=== PATIENT | female | born 1930 | race Caucasian/White ===

== ENCOUNTER 2018-08-03 22:19 | Emergency (ER) | payer MEDICARE, MEDICAID ==
[2018-08-03 22:55] LABS: #Basophils 0.1 thou/uL (0.0-0.2); #Eosinphils 0.3 thou/uL (0.0-0.7); #Lymphocytes 3.1 thou/uL (1.20-3.40); #Monocytes 1.1 thou/uL (0.11-0.59); #Neutrophils 5.2 thou/uL (1.40-6.50); %Basophils 1.2 % (0.0-1.0); %Eosinophils 2.9 % (0.0-10.0); %Lymphocytes 31.7 % (21.0-51.0); %Monocytes 11.2 % (0.0-10.0); Hemoglobin 12.9 g/dL (12.0-16.0); Mean Corpuscular HGB CONC 33.2 g/dL (32.0-36.0); Mean Corpuscular Hemoglobin 32.7 pg (27.0-31.0); Mean Corpuscular Volume 98.3 fL (78.0-98.0); Platelet Count 228 thou/uL (130-400); RBC Distribution Width 11.1 % (11.5-14.5); Red Blood Cell (RBC) Count 3.95 mill/uL (4.20-5.40); White Blood Cell (WBC) Count 9.8 thou/uL (4.8-10.8)
--- NOTE | 2018-08-03 23:17 | RAD ---
PORTABLE UPRIGHT FRONTAL CHEST RADIOGRAPH: 08/03/2018 HISTORY: Altered mental status. Confusion. COMPARISON: 01/26/2017 FINDINGS: Heart and mediastinal contours are stable. Lungs appear clear. Old lateral right-sided rib fracture s are noted. No pneumothorax, pleural fluid, focal consolidation, or alveolar edema. IMPRESSION: No acute findings. POS: [facility]
[2018-08-03 23:20] LABS: ALT (SGPT) 19 U/L (8-55); AST (SGOT) 19 U/L (5-34); Albumin 4.3 g/dL (3.4-4.8); Alkaline Phosphatase 80 U/L (40-150); Anion Gap 11 mmol/L (10-20); BUN (Urea Nitrogen) 35 mg/dL (9.8-20.1); Bilirubin, Total 0.3 mg/dL (0.2-1.2); Calc. Creatinine Clearance 0 mL/min (70-130); Calcium 9.3 mg/dL (7.8-10.44); Carbon Dioxide 26 mmol/L (23-31); Chloride 103 mmol/L (98-107); Estimated GFR-MDRD 46; Globulin 2.7 g/dL (2.4-3.5); Glucose 86 mg/dL (83-110); Lipase 39 U/L (8-78); Potassium 3.7 mmol/L (3.5-5.1); Sodium 136 mmol/L (136-145)
--- NOTE | 2018-08-03 23:32 | CT ---
CT HEAD WITHOUT CONTRAST: 08/03/2018 HISTORY: Altered mental status. Confusion. COMPARISON: 01/26/2017 TECHNIQUE: Axial CT imaging at 5 mm intervals, from the vertex through the skull base without contrast. FINDINGS: The imaged paranasal sinuses and mastoid air cells are well aerated. There is no displaced calvarial fracture. There is mild diffuse cerebral fluoroscopy. No intracrani al hemorrhage, midline shift, mass effect, or ventricular enlargement. IMPRESSION: Chronic findings, as described above. No acute findings are seen. POS: [facility]
[2018-08-04 00:07] LABS: Bilirubin Negative (Negative); Blood, Urine Small (Negative); Clarity CLEAR (Clear); Glucose, Urine (Dipstick) Negative (Negative); Leukocyte Negative (Negative); Nitrite Negative (Negative); Protein, Urine (Dipstick) Negative (Neg-Trace); Specific Gravity, Urine 1.012 (1.002-1.036); Urobilinogen 0.2 mg/dL (0.2-1.0); pH, Urine 6.5 (5.0-9.0)
[2018-08-04 00:10] LABS: Bacteria/HPF None Seen HPF (None Seen); Hyaline Casts/LPF 0-3 HYALINE CAST LPF (0-3 Hyaline); Pathc Cast-AUWi Flag 0.13 (0-2.49); Squamous Epithelial 0-3 HPF (0-3); WBC/HPF None Seen HPF (0-3)
== END 2018-08-04 01:18 ==
LOC: ERS 22:19
DX: F03.90 Unspecified dementia, unspecified severity, without behavioral disturbance, psychotic disturbance, mood disturbance, and anxiety (principal); I10 Essential (primary) hypertension
CPT/HCPCS: 36415; 70450; 71045; 80053; 81003; 81015; 83690; 84484; 85025; 93005

== ENCOUNTER 2019-06-29 18:35 | Inpatient (IN) | payer MEDICARE, MEDICAID ==
[~2019-06-29 18:35] MED LIST: Ondansetron PF 4 MG/2 ML Vial ONE; PROPOFOL 200 MG/20 ML VIAL ONE; Rocuronium Bromide 10 MG/ML (10ML VIAL) ONE; Succinylcholine Chloride 20 MG/ML 10 ml SYRINGE FS ONE
--- NOTE | 2019-06-29 18:59 | RAD ---
XR Elbow Rt 2 View HISTORY: Injury, right elbow pain FINDINGS: There is a comminuted and radially displaced fracture of the supracondylar region of the ri ght humerus
[2019-06-29 19:10] LABS: #Basophils 0.1 thou/uL (0.0-0.2); #Eosinphils 0.2 thou/uL (0.0-0.7); #Lymphocytes 2.3 thou/uL (1.20-3.40); #Monocytes 0.7 thou/uL (0.11-0.59); #Neutrophils 6.3 thou/uL (1.40-6.50); %Basophils 0.6 % (0.0-1.0); %Eosinophils 2.5 % (0.0-10.0); %Lymphocytes 23.4 % (21.0-51.0); %Monocytes 7.7 % (0.0-10.0); %Neutrophils 65.8 % (42.0-75.0); Hemoglobin 13.1 g/dL (12.0-16.0); Mean Corpuscular HGB CONC 34.2 g/dL (32.0-36.0); Mean Corpuscular Hemoglobin 33.6 pg (27.0-31.0); Mean Corpuscular Volume 98.1 fL (78.0-98.0); Platelet Count 232 thou/uL (130-400); RBC Distribution Width 11.5 % (11.5-14.5); White Blood Cell (WBC) Count 9.6 thou/uL (4.8-10.8)
[2019-06-29] MEDS ORDERED: Adacel (T-DAP) 0.5 ML SYRINGE ONE (19:18)
[2019-06-29 19:28] LABS: PTT 29.1 SEC (22.9-36.1); Prothrombin Time 12.7 SEC (12.0-14.7)
[2019-06-29 19:29] LABS: ALT (SGPT) 26 U/L (8-55); AST (SGOT) 30 U/L (5-34); Albumin 4.3 g/dL (3.4-4.8); Alkaline Phosphatase 90 U/L (40-110); Anion Gap 14 mmol/L (10-20); BUN (Urea Nitrogen) 32 mg/dL (9.8-20.1); Bilirubin, Total 0.2 mg/dL (0.2-1.2); Calc. Creatinine Clearance 0 mL/min (70-130); Calcium 9.3 mg/dL (7.8-10.44); Carbon Dioxide 25 mmol/L (23-31); Chloride 106 mmol/L (98-107); Estimated GFR-MDRD 48; Globulin 3.3 g/dL (2.4-3.5); Glucose 107 mg/dL (83-110); Potassium 4.4 mmol/L (3.5-5.1); Protein, Total 7.6 g/dL (6.0-8.3); Sodium 141 mmol/L (136-145)
--- NOTE | 2019-06-29 19:36 | CT ---
CT BRAIN WITHOUT CONTRAST: HISTORY: Level 2 trauma COMPARISON: 08/03/2018 FINDINGS: Chronic changes are stable. No evidence of acute infarct, hemorrhage, midline shift or abnormal extra -axial fluid collections is seen. The ventricular size is appropriate and the basilar cisterns are patent. The bony calvarium is intact. The visualized paranasal sinuses and mastoid air cells are well aerated. IMPRESSION: No CT evidence of acute intracranial process. Discussed over the telephone with ER physician Dr. Mtz at 7:[address] Garrett at 7:33 PM
--- NOTE | 2019-06-29 19:58 | RAD ---
XR Chest 1 View Portable HISTORY: Preoperative evaluation COMPARISON: 08/03/2018 FINDINGS: The heart size is enlarged the lungs are well expanded without focal areas of consolidation , pneumothorax or pleural effusions. IMPRESSION: No radiographic evidence of acute cardiopulmonary process.
--- NOTE | 2019-06-29 20:02 | CT ---
CT CERVICAL SPINE WITHOUT CONTRAST: History: Trauma. FINDINGS: Multilevel degenerative changes are seen. There is minimal anterolisthesis of C4 over C5. No fracture , dislocation, or facet malalignment is identified. Discussed over the telephone with ER physician Dr Mtz at 7:31 p.m., and ER physician Dr. Edi phipps at 7:33 p.m. POS: [facility]
[2019-06-29 20:06] LABS: Bacteria/HPF 2+ HPF (None Seen); Bilirubin Negative (Negative); Blood, Urine Negative (Negative); Clarity Clear (Clear); Glucose, Urine (Dipstick) Normal (Negative); Leukocyte 25 Leu/uL (Negative); Nitrite Negative (Negative); Protein, Urine (Dipstick) Negative (Neg-Trace); RBC/HPF 0-3 HPF (0-3); Squamous Epithelial 0-3 HPF (0-3); Urobilinogen Normal mg/dL (Less than 2)
--- NOTE | 2019-06-29 20:07 | RAD ---
XR Hip Rt 2-3 View HISTORY: Fall, right hip pain FINDINGS: Changes of total hip arthroplasty in good position and alignment. No fracture or dislocation is ident ified.
[2019-06-29] MEDS ORDERED: Dextrose 5% in Water 1,000 ML IV PRN (20:08)
[2019-06-29] MEDS ORDERED: hydrALAZINE 20 MG/ML VIAL SLOW IVP PRN (20:08)
[2019-06-29] MEDS ORDERED: Ondansetron PF 4 MG/2 ML Vial IVP PRN ×2 (20:08→21:45)
[2019-06-29] MEDS ORDERED: Dextrose 50% Abboject 50 ML SYRINGE SLOW IVP PRN (20:08)
[2019-06-29] MEDS ORDERED: Morphine 2 MG/ML SYRINGE SLOW IVP PRN (20:08)
--- NOTE | 2019-06-29 20:08 | RAD ---
XR Pelvis AP STANDARD HISTORY: Right hip pain, fall FINDINGS: No fracture or dislocation is identified.Changes of total hip arthroplasty are in good position and a lignment. There are degenerative changes in the left hip.
[2019-06-29] MEDS ORDERED: traMADol HCl 50 MG TAB PO PRN ×2 (20:11)
[2019-06-29] MEDS ORDERED: Sodium Chloride 0.9% 500 ML IV SCH (20:15)
[2019-06-29] MEDS ORDERED: Lidocaine 1% PF 5 ML VIAL ONE (21:06)
--- NOTE | 2019-06-29 21:35 | HP ---
TRAUMA SURGEON: Dr. Burton. CONSULTING PHYSICIAN: Dr. Maxwell. HISTORY OF PRESENT ILLNESS: The patient is an 89-year-old female, who presented to the Emergency Department via EMS after mechanical fall at a intermediate. It is reported that the patient missed the chair, when sitting down, subsequently, striking her right elbow on the chair, and landing on her buttocks. No loss of consciousness is reported. The patient does not take any anticoagulants. She received x-rays of the right elbow, chest x-ray, pelvic, and hip x-ray on the right, as well as CT scans of the head and C-spine, which demonstrated a right open humerus fracture. Dr. Maxwell was consulted, who evaluated the patient and took the patient to the OR this evening for fixation of the right open fracture. The patient does have a history of dementia. Her mentation is at baseline. She is alert and oriented x1. She recognizes her family and follows commands. However, she is not aware of current events, her whereabouts, or date. REVIEW OF SYSTEMS: Negative except as indicated above. PAST MEDICAL HISTORY: Hypertension, dementia, and osteoarthritis. PAST SURGICAL HISTORY: Right hip replacement and appendectomy. SOCIAL HISTORY: The patient lives in a intermediate. Family denies drug, alcohol, and tobacco use. MEDICATIONS: 1. Donepezil. 2. MiraLAX. 3. Tums. 4. Lidocaine patch. 5. Tylenol. 6. Milk of Magnesium. 7. D3. 8. Maalox. 9. Claritin. 10. Docusate sodium. 11. Amlodipine. ALLERGIES: PENICILLIN. PHYSICAL EXAMINATION: VITAL SIGNS: The patient is afebrile, heart rate in the 60s, blood pressure 136/82, respirations 20, and oxygen saturation 94% on room air. PRIMARY SURVEY: Airway intact. Adequate breath sounds bilaterally. 2+ pulses in bilateral radials, femorals, and DPs. GCS 14, -1 for verbal, this is her baseline, gross motor and sensation are intact in all extremities. The patient has an open fracture to the right elbow. Bleeding is controlled. SECONDARY SURVEY: HEAD: Normocephalic and atraumatic. No gross palpable skull deformities or tenderness. EYES: Pupils 3-2, equal, round, reactive to light bilaterally. ENT: No hemotympanum. No epistaxis. No septal hematoma. Midface stable to manipulation. No blood in the oropharynx. Dentition is intact. No anterior neck injury/crepitus/tenderness. C-SPINE: No step-offs or deformities. Nontender. C-collar not in place. CHEST: Nontender. No crepitus. No abrasions or ecchymosis. Equal chest movement. ABDOMEN: Soft, nontender, nondistended. PELVIS: Stable to palpation, nontender. No abrasions or ecchymosis. RECTAL: Deferred. GENITOURINARY: Normal external genitalia. Clear yellow urine in Gutierrez. EXTREMITIES: There is an open fracture to the right elbow with bleeding controlled. No other signs of deformity to the bilateral lower and left upper extremities. The patient is having some pain in her right hip. She has a previous hip replacement. BACK/SPINE: No step-offs, deformities, or tenderness to palpation of the thoracic or lumbar spine. No abrasions or ecchymosis noted. NEUROLOGIC: 5/5 strength in bilateral plantar flexion and dorsiflexion in bilateral cook fishing vessel. Gross normal sensation x4 extremities. LABORATORY FINDINGS: White count 9.6, hemoglobin 13.1, hematocrit 38.3, and platelets 232. INR 1.0. Sodium 141, potassium 4.4, chloride 105, bicarb 25, BUN 32, creatinine 1.08, glucose 107. UA is positive for bacteria and white cells. DIAGNOSTIC FINDINGS: CT of the brain demonstrates no CT evidence of acute intracranial process. CT of the C-spine demonstrates multilevel degenerative changes are seen. There is minimal anterolisthesis of the C4 over C5. No fracture dislocation or facet malalignment is identified. X-ray of the right elbow demonstrates there is a comminuted and radially displaced fracture of the supracondylar region of the right humerus. Chest x-ray demonstrates no radiographic evidence of acute cardiopulmonary process. X-ray of the right hip demonstrates changes of total hip arthroplasty in good position and alignment. No fracture dislocation is identified. Pelvic x-ray demonstrates no fracture dislocation is identified, changes of the total hip arthroplasty are in good position and alignment. There are degenerative changes in the left hip. ASSESSMENT: 1. Status post mechanical fall from standing. 2. Right open distal humerus fracture. 3. Urinary tract infection, uncomplicated. 4. History of hypertension, dementia, and osteoarthritis. PLAN: The patient is to go to the OR today with Dr. Maxwell for fixation of the right open elbow fracture. Postop, she will be admitted to the Trauma Service and go to the surgical nursing floor. She will be n.p.o. until postop. She will receive 500 mL of normal saline at 70 an hour. She will receive p.o. pain medications post scheduled and p.r.n. We will treat her UTI with 3 days of Bactrim. We will also follow up cultures to ensure sensitivity. Postoperatively, she will work with Physical and Occupational Therapy and likely be discharged to a residential facility. This patient was discussed with Dr. Burton before this dictation. Job ID: [id number]
[2019-06-29] MEDS ORDERED: Promethazine HCl 25 MG/ML VIAL IM PRN (21:45)
[2019-06-29] MEDS ORDERED: Ketorolac Tromethamine 30 MG/ML VIAL IVP PRN (21:45)
[2019-06-29] MEDS ORDERED: Ropivacaine 0.2% 550 ML 550 ML NERVE BLCK SCH (21:45)
[2019-06-29] MEDS ORDERED: Acetaminophen 325 MG TAB PO PRN (21:45)
[2019-06-29] MEDS ORDERED: Zolpidem Tartrate 5 MG TAB PO PRN (21:45)
[2019-06-29] MEDS ORDERED: Fentanyl 100 MCG/2 ML VIAL IV PRN (21:46)
[2019-06-29] MEDS ORDERED: Ropivacaine HCl/PF 250 ML in Premix Bag 1 BAG NERVE BLCK SCH (21:49)
[2019-06-30] MEDS ORDERED: Ondansetron HCl/PF 4 MG/2 ML Vial IVP PRN (00:33)
[2019-06-30] MEDS ORDERED: Promethazine HCl 25 MG/ML VIAL SLOW IVP PRN (00:33)
[2019-06-30] MEDS ORDERED: Promethazine HCl 25 MG/ML VIAL IM PRN (00:33)
[2019-06-30] MEDS ORDERED: Acetaminophen 325 MG TAB PO PRN (00:46)
[2019-06-30 02:14] VITALS: BMI 23.1
[2019-06-30] MEDS: Sulfameth/Trimethoprim DS 800-160mg TAB PO SCH ×3 (02:47→20:22)
[2019-06-30] MEDS: Acetaminophen 500 MG TAB PO SCH ×5 (02:47→20:22)
[2019-06-30] MEDS: Senokot S 8.6-50 MG TAB PO SCH ×4 (02:47→23:56)
[2019-06-30] MEDS: CEFAZOLIN 2 GM in Premix Bag 1 BAG IVPB SCH ×3 (03:19→20:20)
[2019-06-30 05:04] LABS: #Lymphocytes 1.6 thou/uL (1.20-3.40); #Neutrophils 11.8 thou/uL (1.40-6.50); %Basophils 0.3 % (0.0-1.0); %Eosinophils 0.2 % (0.0-10.0); %Lymphocytes 10.8 % (21.0-51.0); %Neutrophils 81.8 % (42.0-75.0); Hemoglobin 11.7 g/dL (12.0-16.0); Mean Corpuscular HGB CONC 33.1 g/dL (32.0-36.0); Mean Corpuscular Hemoglobin 32.8 pg (27.0-31.0); Platelet Count 210 thou/uL (130-400); RBC Distribution Width 11.5 % (11.5-14.5); Red Blood Cell (RBC) Count 3.56 mill/uL (4.20-5.40); White Blood Cell (WBC) Count 14.4 thou/uL (4.8-10.8)
[2019-06-30 05:29] LABS: Anion Gap 13 mmol/L (10-20); BUN (Urea Nitrogen) 27 mg/dL (9.8-20.1); Calc. Creatinine Clearance 49 mL/min (70-130); Calcium 8.6 mg/dL (7.8-10.44); Carbon Dioxide 22 mmol/L (23-31); Chloride 106 mmol/L (98-107); Estimated GFR-MDRD 65; Glucose 105 mg/dL (83-110); Sodium 137 mmol/L (136-145)
--- NOTE | 2019-06-30 08:50 | RAD ---
RIGHT ELBOW 2 VIEWS: HISTORY: Status post ORIF. COMPARISON: 06/29/2019. FINDINGS: Extensive metal plate and screw fixation changes of the severely comminuted, severely displaced dista l humeral fracture with marked improvement in position and alignment from the prereduction study. IMPRESSION: Status post open reduction internal fixation with improvement in position and alignment. POS: [facility]
[2019-06-30] MEDS: Polyethylene Glycol 3350 17 GM Packet PO SCH (08:51)
[2019-06-30] MEDS: Amlodipine 10 MG TAB PO SCH (08:52)
[2019-06-30] MEDS ORDERED: Prevnar 13-Val Conj/PF 0.5 ML SYRINGE IM ONE (09:00)
[2019-06-30] MEDS ORDERED: FLU VACC TS2019-20(65YR UP)/PF 180 MCG/0.5 ML SYRINGE IM ONE (09:00)
--- NOTE | 2019-06-30 12:38 | PDOC.GSPN ---
Surgery Progress Note: Subj - Subjective Narrative: Pt is a 89 yo female POD1 for fixation of right open humerus fracture sustained after mechanical fall. Patient is doing well and was able to tolerate full diet this morning. OT evaluated the patient this morning and she seemed to work well with them. Urinary catheter was d/c this morning. Pain seems to be controlled so far. Patient will be working with PT this morning and will make adjustments to pain regimen as needed to allow the patient to engage fully in PT. Surgery Progress Note: Obj - Vital signs Vital signs: Vital Signs - Most Recent Temp Pulse Resp BP Pulse Ox 98.4 F 76 18 101/66 92 L 06/30/19 11:49 06/30/19 11:49 06/30/19 11:49 06/30/19 11:49 06/30/19 07:57 - Physical Exam General: no distress Surgery Progress Note: Results - Labs Result Diagrams: 06/30/19 04:47 06/30/19 04:47 Lab results: Laboratory Results - last 24 hr 06/30/19 06/30/19 04:47 04:47 WBC 14.4 H RBC 3.56 L Hgb 11.7 L Hct 35.3 L MCV 99.0 H MCH 32.8 H MCHC 33.1 RDW 11.5 Plt Count 210 MPV 9.0 Neutrophils % 81.8 H Lymphocytes % 10.8 L Monocytes % 7.0 Eosinophils % 0.2 Basophils % 0.3 Neutrophils # 11.8 H Lymphocytes # 1.6 Monocytes # 1.0 H Eosinophils # 0.0 Basophils # 0.0 Sodium 137 Potassium 4.0 Chloride 106 Carbon Dioxide 22 L Anion Gap 13 BUN 27 H Creatinine 0.83 Estimated GFR (MDRD) 65 Glucose 105 Calcium 8.6 Phosphorus 3.0 Magnesium 2.0 Surgery Progress Note: A/P - Plan Plan: Assessment: 1. s/p mechanical fall from standing 2. R open distral humerus fracture, repaired 3. Urinary tract infection, uncomplicated, present on admission 4. History of HTN, dementia, and osteoarthritis Plan: Continue PT/OT, adjust pain medication accordingly to engage fully in therapy -Patient is on SCDs and Lovenox for DVT PPX -Continue bactrim for uncomplicated UTI, present on admission (3 days total for antibiotics), follow up cultures and sensitivities Patient was evauated by Dr Cooper at bedside during morning rounds. Plan was discussed and all parties were in agreement of the plan. Addendum - Physician - Physician Attestation Date/Time: 06/30/19 4890 I personally performed or re-performed the physical examination and medical decision making. I have verified all student documentation or findings, including history, physical exam and/or medical decision making.
[2019-06-30] MEDS ORDERED: Sodium Chloride 0.9% 500 ML IV SCH (19:45)
[2019-06-30] MEDS ORDERED: Enoxaparin Sodium 40 MG/0.4 ML SYRINGE SC SCH (21:00)
[2019-06-30] MEDS ORDERED: Donepezil HCl 5 MG TAB PO SCH (21:00)
[2019-07-01] MEDS: Acetaminophen 500 MG TAB PO SCH ×3 (03:25→14:39)
--- NOTE | 2019-07-01 03:58 | PRG ---
DATE OF SERVICE: 07/01/2019 SUBJECTIVE: The patient remains on the surgical floor. She is status post ground level fall, in which she sustained an open right distal humerus fracture, for which she has undergone irrigation and debridement, and open reduction and internal fixation of the same. She has begun working with Physical and Occupational Therapy, and she is awaiting placement decision. The nurses report some "sundowning" this evening, but otherwise she is doing well. She just has some impulsiveness and disorientation since being here in the hospital. PHYSICAL EXAMINATION: VITAL SIGNS: Temperature is 98.3, heart rate 83, blood pressure 109/70, respirations 16, and oxygen saturation 94% on room air. GENERAL: The patient is resting in bed. She was asleep when I entered, but did open her eyes, . She appeared confused, which nurses state this is her baseline. They asked that I not fully awaken the patient as she has difficulty going back to sleep. RESPIRATORY: Her respirations appear nonlabored. She appeared comfortable. ASSESSMENT: 1. Status post fall from standing. 2. Status post irrigation and debridement, and open reduction and internal fixation of right distal humerus fracture. 3. Urinary tract infection, uncomplicated, present on admission. 4. History of hypertension, dementia, and osteoarthritis. PLAN: Will to be to continue supportive care. Encourage physical and occupational therapy, sleep hygiene, and await placement decision. Job ID: [id number]
[2019-07-01] MEDS: Polyethylene Glycol 3350 17 GM Packet PO SCH (08:08)
[2019-07-01] MEDS: Sulfameth/Trimethoprim DS 800-160mg TAB PO SCH (08:08)
[2019-07-01] MEDS: Amlodipine 10 MG TAB PO SCH (08:09)
[2019-07-01] MEDS: Senokot S 8.6-50 MG TAB PO SCH (08:10)
[2019-07-01] MEDS ORDERED: Ibuprofen 200 MG TAB PO PRN (10:38)
[2019-07-01 15:51] VITALS: BP 107/72; TEMP 98.7
[2019-07-01] MEDS ORDERED: Enoxaparin Sodium 30 MG/0.3 ML SYRINGE SC SCH (21:00)
--- NOTE | 2019-07-02 03:33 | DIS ---
DATE OF ADMISSION: 06/30/2019 DATE OF DISCHARGE: 07/01/2019 ADMISSION DIAGNOSES: 1. Status post ground level fall. 2. Right open distal humerus fracture. 3. Urinary tract infection, uncomplicated, present on admission. 4. History of hypertension, dementia. DISCHARGE DIAGNOSES: 1. Status post ground level fall. 2. Right open distal humerus fracture, status post ORIF of right open distal humerus fracture. Uncomplicated urinary tract infection present on admission, treated. 3. History of hypertension, dementia. CONSULTING PHYSICIAN: Dr. Maxwell. PROCEDURE PERFORMED: ORIF of right open distal humerus fracture. HOSPITAL COURSE: Ms. Kraft is an 89-year-old female with status post ground level fall. She sustained right open humerus fracture. She underwent ORIF of open right humerus fracture shortly after presenting to the ED. The patient tolerated the procedure well. Postop, the patient developed mild delirium in which she resolved and got back to her baseline. The patient in which patient's daughter said that her chronic condition has been going on for 6 months now. However, the patient tolerated with her regular diet. She is working minimal with Physical Therapy due to sleepiness. Her urine is adequate. Her vital signs are stable. PHYSICAL EXAMINATION: GENERAL: Currently, the patient is lying in bed comfortable with no acute respiratory distress. VITAL SIGNS: Temperature 98.0, heart rate 83, respiratory rate 18, O2 saturation 93% on room air, and blood pressure 114/72. LUNGS: Clear bilaterally. HEART: Regular rate and rhythm. ABDOMEN: Soft and nondistended. EXTREMITIES: Right upper extremity postop dressing is clean, dry, and intact. Currently, the patient has nerve block from the right upper extremity incision. Sensation intact bilaterally. Right hand is pink and warm. No signs of compartment syndrome . NEUROLOGIC: The patient's mental status is in her baseline. DISCHARGE DISPOSITION: care home facility. DISCHARGE CONDITION: Fair. DISCHARGE INSTRUCTIONS: The patient is to take medication as directed. Encouraged working with Physical Therapy and Occupational Therapy. Continue DVT prophylaxis. See Dr. Maxwell in 10 to 14 days. DISCHARGE MEDICATIONS: 1. Tylenol. 2. Amlodipine. 3. Lovenox. 4. Ibuprofen. 5. Bactrim. 6. Senokot. Job ID: [id number]
--- NOTE | 2019-07-02 13:51 | OP ---
DATE OF PROCEDURE: 06/29/2019 PREOPERATIVE DIAGNOSIS: Right intercondylar/supracondylar distal humerus fracture. POSTOPERATIVE DIAGNOSIS: Right intercondylar/supracondylar distal humerus fracture. SURGICAL PROCEDURE: Open reduction and internal fixation of right distal humerus. ANESTHESIA: General. IMPLANTS: Synthes System was used with a 2.7 mm LCP 10-hole plate and a combination of 3.5 mm screws and 2.7 mm cortical screws with the addition of a 2.7 mm LCP distal humeral plate short. COMPLICATIONS: None. DRAINS: None. SPECIMENS: None. OUTCOME: Near-anatomic alignment. INDICATIONS: The patient is an 89-year-old lady, status post ground-level fall, sustaining a comminuted distal humerus fracture. After discussion with the patient including risks and benefits as well as discussion with her family, we had decided to proceed with open reduction and internal fixation. Informed consent has been obtained, and I believe all questions have been answered. DESCRIPTION OF PROCEDURE: The patient was brought to the operating room and a time-out performed followed by induction of general anesthesia. Next, the patient was placed in a left lateral decubitus position with the right elbow draped over a bolster to allow for a posterior approach to the elbow. Next, a sterile prep and drape was performed. A posterior incision was made and a triceps splitting approach to in the distal humerus was performed. The triceps was partially elevated off the olecranon process to allow for visualization of the intra-articular extension of the fracture. Care was taken to identify and protect the ulnar nerve during the procedure. Once exposed, the fracture was found to have a large medial column fragment with a severely comminuted lateral column. As such, tension was 1st placed at the medial column. This was reduced and held in place with a combination of K-wires and bone tenaculums. Once anatomically reduced, a 2.7 mm LCP 10-hole plate was contoured to ride along the posterior medial aspect of this fragment, which was the optimal position for hardware to function as a buttress for this fragment. This was held in place with 2.7 mm cortical screws, getting excellent stabilization of the medial column. Next, the lateral column intra-articular component was reduced to this medial column in an anatomic fashion. This was then held in place with a transverse screw extending from the lateral epicondyle across the fracture into the medial fragment. This was performed under C-arm guidance. This stabilized the articular surface. Unfortunately, there was severe comminution especially on the posterior aspect of lateral column. This necessitated the application of a short plate to provide some stability of this lateral column. Once applied and held in place with appropriate length screws, the fracture was found to be stable at the articular surface with the understanding that we did not have a completely rigid fixation of the lateral column. The elbow was able to be brought through range of motion and no crepitation was appreciated at the time of this surgery, and the joint surface was felt to be anatomically aligned. Next, the wound was thoroughly irrigated with normal saline and then closed in layers. This was done with 0 Vicryl for the triceps tendon followed by 2-0 Vicryl and then itzel for the skin. Xeroform gauze, Webril, and a long-arm posterior fiberglass splint were applied to the elbow and then the patient was transferred to recovery room in stable condition. There were no complications. The patient tolerated this procedure well. Job ID: [id number]
== END 2019-07-01 17:25 | DRG 493 ==
LOC: ERS 18:35 → SDC/OP 20:19 → SURG A 06-30 01:30
PROVIDERS: ADMIT Surgery; ATTEND Surgery
PROC: 0PSF04Z Reposition Right Humeral Shaft with Internal Fixation Device, Open Approach (ICD-10-PCS; principal; 2019-06-29)
DX: S42.401B Unspecified fracture of lower end of right humerus, initial encounter for open fracture (principal); N39.0 Urinary tract infection, site not specified; I10 Essential (primary) hypertension; F03.90 Unspecified dementia, unspecified severity, without behavioral disturbance, psychotic disturbance, mood disturbance, and anxiety; W18.39XA Other fall on same level, initial encounter; Z96.641 Presence of right artificial hip joint; R41.0 Disorientation, unspecified; F41.9 Anxiety disorder, unspecified; R40.2412 Glasgow coma scale score 13-15, at arrival to emergency department; M19.90 Unspecified osteoarthritis, unspecified site; Z88.0 Allergy status to penicillin; Z90.49 Acquired absence of other specified parts of digestive tract
CPT/HCPCS: 36415; 51702; 70450; 71045; 72125; 72170; 76000; 80048; 80053; 81003; 81015; 83735; 84100; 85025; 85610; 85730; 87086; 90471; 90715; 93005; 96365; C1713; G0390; J0690; J1650; J2001; J2405; J2704; J2795

== ENCOUNTER 2019-07-17 09:43 | Emergency (ER) | payer MEDICARE, MEDICAID ==
[2019-07-17 10:27] LABS: #Eosinphils 0.2 thou/uL (0.0-0.7); #Lymphocytes 2.1 thou/uL (1.20-3.40); #Monocytes 1.3 thou/uL (0.11-0.59); #Neutrophils 7.8 thou/uL (1.40-6.50); %Basophils 0.2 % (0.0-1.0); %Lymphocytes 18.6 % (21.0-51.0); %Monocytes 11.6 % (0.0-10.0); %Neutrophils 67.5 % (42.0-75.0); Hemoglobin 10.5 g/dL (12.0-16.0); Mean Corpuscular HGB CONC 33.6 g/dL (32.0-36.0); Mean Corpuscular Hemoglobin 33.6 pg (27.0-31.0); Mean Corpuscular Volume 99.8 fL (78.0-98.0); Mean Platelet Volume 7.2 fL (7.4-10.4); Platelet Count 555 thou/uL (130-400); RBC Distribution Width 11.8 % (11.5-14.5); Red Blood Cell (RBC) Count 3.14 mill/uL (4.20-5.40); White Blood Cell (WBC) Count 11.5 thou/uL (4.8-10.8)
--- NOTE | 2019-07-17 10:55 | CT ---
CT BRAIN WITHOUT CONTRAST: HISTORY:Altered mental status COMPARISON:06/29/2019 FINDINGS: Chronic changes are stable. No evidence of acute infarct, hemorrhage, midline shift or abnormal extra -axial fluid collections is seen. The ventricular size is appropriate and the basilar cisterns are patent. The bony calvarium is intact. The visualized paranasal sinuses and mastoid air cells are well aerated. IMPRESSION: No CT evidence of acute intracranial process.
[2019-07-17 11:03] LABS: ALT (SGPT) 12 U/L (8-55); AST (SGOT) 19 U/L (5-34); Albumin 3.5 g/dL (3.4-4.8); Alkaline Phosphatase 212 U/L (40-110); Anion Gap 13 mmol/L (10-20); BUN (Urea Nitrogen) 18 mg/dL (9.8-20.1); Bilirubin, Total 0.4 mg/dL (0.2-1.2); CK (CPK) 46 U/L (29-168); Calc. Creatinine Clearance 0 mL/min (70-130); Calcium 8.6 mg/dL (7.8-10.44); Carbon Dioxide 23 mmol/L (23-31); Chloride 105 mmol/L (98-107); Estimated GFR-MDRD 60; Globulin 2.8 g/dL (2.4-3.5); Glucose 102 mg/dL (83-110); Lipase 17 U/L (8-78); Potassium 4.2 mmol/L (3.5-5.1); Protein, Total 6.3 g/dL (6.0-8.3); Sodium 137 mmol/L (136-145)
[2019-07-17 11:28] LABS: Bilirubin Negative (Negative); Blood, Urine Negative (Negative); Clarity Clear (Clear); Glucose, Urine (Dipstick) Normal (Negative); Leukocyte Negative Leu/uL (Negative); Nitrite Negative (Negative); Protein, Urine (Dipstick) 10 mg/dL (Neg-Trace); Urobilinogen Normal mg/dL (Less than 2)
--- NOTE | 2019-07-17 11:50 | RAD ---
XR Chest 1 View Portable HISTORY: Altered mental status. Fever COMPARISON: 06/29/2019 FINDINGS: The heart size is enlarged. The lungs are well expanded without focal areas of consolidatio n, verenice pulmonary edema, pneumothorax or pleural effusions. There are old right-sided rib fractures. IMPRESSION: No radiographic evidence of acute cardiopulmonary process.
== END 2019-07-17 13:15 | disposition home or self-care (01) ==
LOC: ERS 09:43
DX: F03.90 Unspecified dementia, unspecified severity, without behavioral disturbance, psychotic disturbance, mood disturbance, and anxiety (principal); I10 Essential (primary) hypertension; M19.90 Unspecified osteoarthritis, unspecified site; F41.9 Anxiety disorder, unspecified
CPT/HCPCS: 36415; 51701; 70450; 71045; 80053; 81003; 82550; 83690; 84484; 85025; 93005; A4353